=== PATIENT | female | born 1980 | race Caucasian/White ===

== ENCOUNTER → 2019-10-23 | Outpatient (CLI) | payer BC | LOC: COL.RAD 09:31 | DX: R10.9 Unspecified abdominal pain (principal) | CPT/HCPCS: A9537 ==

== ENCOUNTER → 2019-11-20 | Outpatient (CLI) | payer BC | LOC: COL.RAD 07:43 | DX: R10.9 Unspecified abdominal pain (principal) | CPT/HCPCS: A9541 ==